=== PATIENT | male | born 1955 | race Caucasian/White ===

== ENCOUNTER 2022-11-26 08:13 | Day surgery (SDC) | payer MEDICARE, OTHER, SELFPAY ==
[2022-11-26] VITALS (10 sets, daily range): BP systolic 72–117; BP diastolic 57–79; PULSE 64–87; RESP 16; TEMP 36.8–37.1; O2SAT 97–100; BMI 28.3
--- NOTE | 2022-11-26 | LES_PTH ---
PATIENT: PATRIA FREGOSO [place] [facility] [id number] AGE/SX: 67/M ROOM: RE11/26/[address]: Dr. Dom Padilla MD : 1955 BED: DIS: 11/26/2022 SPEC #: [id number] RECD: 11/26/22 11:18 STATUS: BEBA NARDA #: [id number] BETHEL: 11/26/22 00:[address]: Dom Padilla DEPT: SURGICAL PATHOLOGY RECD BY: Joyce Avina ENTERED: 11/26/22 11:48 SP TYPE: Lesion OTHR DR: Dr. Aram Mccurdy MD Tissues: A - Skin of neck, NOS B - Skin of neck, NOS Procedures: Frozen Section (charge) [facility] Surgery Specimen Level IV HEADER OPERATION: Excision lesion posterior neck/upper midback with frozen section PRE-OP DIAGNOSIS: Lesion posterior neck and upper back TISSUE SUBMITTED: A - Lesion posterior neck and upper back, FS, B - Lesion posterior neck and upper back, stitch at 12 o'clock FROZEN SECTION DIAGNOSIS A. Skin lesion, posterior neck-upper back, biopsy: Invasive squamous cell carcinoma. AM:rg 11/26/2022 MICROSCOPIC DIAGNOSIS A - Lesion posterior neck and upper back, biopsy: Invasive basosquamous carcinoma. B - Lesion posterior neck and upper back, stitch at 12 o'clock, excisional biopsy: Invasive basosquamous carcinoma, completely excised. Mild actinic keratosis and solar elastosis. See comment. SJ: 11/29/2022 COMMENT Immunohistochemistry ([id number]) supports the above diagnosis. The tumor measures 1.5 cm in greatest width (measured microscopically) and up to 0.5 cm in depth. Perineural or lymph-vascular invasion is not identified. Case has been reviewed in consultation with Dr. Russo who concurs with the above diagnosis. IDC:AM MICROSCOPIC DESCRIPTION Slides are reviewed. GROSS DESCRIPTION A - Received fresh for frozen section consultation labeled with the patient's name is a specimen designated lesion posterior neck and upper back. The specimen consists of a piece of ardon-white skin measuring 2.7 x 1.7 x 0.2 cm. The specimen is inked, serially sectioned submitted entirely in two cassettes for frozen section diagnosis. B - Received in fixative is one container labeled with the patient's name and designated lesion posterior neck and upper back. The specimen consists of an irregular fragment of ardon excised skin measuring 5.0 x 3.6 cm and a depth of excision measuring 2.7 cm. A suture is present at the 12 o'clock position. The cutaneous surface displays a recent defect consistent with biopsy measuring 2.6 x 1.7 cm. The specimen is differentially inked as follows: 12 o'clock - black, 3 o'clock - red, 6 o'clock - blue, 9 o'clock - green and deep surface - yellow. The specimen is serially sectioned and submitted in its entirety in 12 cassettes. / AM:kevin 11/27/2022 TC:0 CPT:74558 x2, 23750, 48003
--- NOTE | 2022-11-26 | IMM_PTH ---
PATIENT: PATRIA FREGOSO [place] [facility] [place][id number] AGE/SX: 67/M ROOM: RE11/26/[address]: Dr. Dom Padilla MD : 1955 BED: DIS: 11/26/2022 SPEC #: [id number] RECD: 11/29/22 06:13 STATUS: BEBA REQ #: [id number] BETHEL: 11/26/22 00:[address]: Dom Padilla DEPT: IMMUNOHISTOCHEMISTRY RECD BY: Martin Groves ENTERED: 11/29/22 06:17 SP TYPE: IMMUNO OTHR DR: Dr. Aram Mccurdy MD Tissues: Skin of neck, NOS Procedures: CD10 (add) CEA (add) CK5-6 (add) RAJ (add) 34BE12 (add) P40 (add) BCL-2 (initial) PHYSICIAN & INSTITUTION [place] [id number] SPECIMEN INFORMATION: Tissue Source: Lesion posterior neck and upper back Clinical Info: Lesion posterior neck and upper back Specimen Number: [id number] CPT code: 39452, 71592 x 6 METHODOLOGY: Deparaffinized sections of prefer/formalin-fixed tissue or PAP/DQ stained slides are incubated with monoclonal/polyclonal antibodies/oligonucleotide probes. Localization is made via biotin free immunoperoxidase method. Appropriate controls are performed and reacted as expected. Results on target cell population are indicated in the following table: RESULTS: ANTIBODY / CLONE RESULT BCL-2 (bcl-2/100/D5) positive, weak CD10 (56C6) negative CEA (11-7/TF-3HB-1) negative RAJ (E29) negative P40 (BC28) positive CK5-6 (D5 & 1684) positive 34BE12 (34BE12) positive These tests were developed and their performance characteristics determined by [facility]. They may not have been cleared or approved by the U.S. Food and Drug Administration. The FDA has determined that such clearance or approval is not necessary. The above immunohistochemical/dualISH markers are ordered by Dr. Scott Russo and reviewed by the Pathologist. INTERPRETATION: Lesion posterior neck and upper back, excisional biopsy: Invasive basosquamous carcinoma LAMBERT:solitario 11/29/22
[2022-11-26] MEDS: Lactated Ringers 1,000 ML 15 ML IV (09:26)
[2022-11-26] MEDS: Clindamycin 900 MG/50 ML BAG 75 MG IV (10:35)
[2022-11-26] MEDS: Lidocaine 1% /Epi 1:100 (20ml) 20 ML Vial (11:10)
[2022-11-26] MEDS: Mupirocin Ointment 22gm Tube 1 APPLIC (11:59)
--- NOTE | 2022-11-26 13:37 | PCM.OPRPT ---
Problems Associated Problem List Diagnoses (1) Squamous cell carcinoma of skin of neck: (2) Squamous cell carcinoma of upper back excluding scapular region: (3) Family history of skin cancer: (4) Former smoker: Report of Operation Date of Procedure: 11/26/22 Pre-Operative Diagnosis: 1. 3 cm erythematous nodular lesion posterior neck with some extension onto upper mid back, clinically basal cell carcinoma. 2. Family history of skin cancer. 3. Former smoker. Post-Operative Diagnosis: 1. 3 cm invasive squamous cell carcinoma posterior neck with some extension onto upper mid back. 2. Family history of skin cancer. 3. Former smoker. Surgery/Procedure Performed:: Excision 3 cm invasive squamous cell carcinoma posterior neck with some extension onto upper mid back with rhomboid transposition skin flap reconstruction (50 cm2). Description of Surgical Findings:: 67 year old man presents for evaluation for TBSE. He has a concern about an erythematous nodular lesion on his posterior neck with some extension onto upper mid back that has been enlarging in size over the last several months. There is some discomfort when he bumps it. He denies trauma. He denies fever. He denies drainage. He denies infection. Clinically it looks like a basal cell carcinoma. Excision was recommended followed by skin graft or skin flap reconstruction. Patient was informed of the risks and complications of the procedure including alternatives to surgery. These were discussed with the patient personally. Patient voices understanding and wishes to proceed. Some of the risks and complications were included in a form from the [employer]. Potential risks and complications included but not inclusive of bleeding, infection, seroma, hematoma, bruising, swelling, prolonged need for drains, loss of sensation to skin, partial or complete loss of skin flap and/or skin graft, wound breakdown, need for wound care, poor scarring, poor aesthetic outcome, intra operative cardiac or neurologic events, DVT, PE, and reaction to anesthesia. Frozen section lesion posterior neck with some extension onto upper mid back - invasive squamous cell carcinoma. I used Nissa absorbable hemostat. Reference Number - [id number]. Lot Number - [id number]. Expiration - May 05, 2027. Surgeon: Dom Padilla MD agents' records clerk: Samson Smyth RNFA Type of Anesthesia: General Anesthesiologist: Shon Rios MD and Roly Ackerman MD Specimen's removed: 1. Lesion posterior neck with some extension onto upper mid back to Pathology for a frozen section. 2. Invasive squamous cell carcinoma posterior neck with some extension onto upper mid back to Pathology. Drains: None. Estimated Blood Loss (mL): 25. Description of Procedure: Patient was taken to OR in supine position and was placed under general anesthesia. He was placed in the prone position. The lesion posterior neck with some extension onto upper mid back was prepped and draped in the usual fashion. SCD's were placed for DVT prophylaxis. Perioperative antibiotics were given intravenously. Using xylocaine with epinephrine, the lesion was infiltrated. After waiting 5 minutes for the anesthetic to take effect, I excised the lesion in an intradermal fashion and sent it to Pathology as a frozen section for analysis to rule out carcinoma. Frozen section showed it was an invasive squamous cell carcinoma. Full thickness excision was then done with a margin of 1 cm in all directions thus fashioning a 5 cm excision. It was a rhomboid excision. A suture was marked at 12 oclock position for pathology orientation. The lesion was then sent to Pathology for analysis to rule out carcinoma at the margins. A rhomboid flap was designed inferior to the defect in the posterior neck/upper mid back. Incisions were made and the flap was elevated on a subcutaneous pedicle at the level of the underlying muscular fascia. The flap was easily transposed into the wound defect with minimal tension and minimal distortion. Hemostasis was obtained with electrocautery. The wound was sprayed with Nissa absorbable hemostat to minimize seroma formation. I closed the wound defect in a complex multiple layered fashion using 2-0 Vicryl figure of eight interrupted sutures for the underlying Mario's fascial layer. The deep dermis and subcutaneous tissue was approximated with 3-0 Monocryl interrupted sutures. The skin was approximated with 4-0 Prolene simple interrupted sutures. No vascular compromise was noted on the skin flap. No hematoma noted. The size of the wound defect and the size of the flap needed to close the defect was 50 cm2. The carcinoma and the flap reconstruction crossed two separate areas (posterior neck and upper mid back). About 25 cm2 involved the posterior neck and about 25 cm2 involved the upper mid back area. Antibiotic ointment was applied to the suture line followed by 4x4 gauze and Medipore compression dressing. Patient tolerated the procedure well and was sent to PACU in satisfactory condition. Patient will be sent home on antibiotics and pain medication. He will keep his head elevated during the initial postoperative period. He will be on a lifting restriction as well. Patient will followup in a week for a wound check and for discussion of the pathology report. The sutures will be removed in 2-3 weeks. Grafts/Implants Used: Nissa. Procedure Start Time: 11:10 Procedure Stop Time: 12:13 Complications None. Admit VTE Documentation VTE Present on Admission: No VTE Mechan Device Prophylaxis: SCD's VTE Pharm Prophylaxis ordered?: No Addendum Addendum: Surgery Charges CPT - 17535 ICD-10 - C44.42, C44.529, D49.2, Z80.8, Z87.891 37562 C44.529, C44.42, D49.2, Z80.8, Z87.891
--- NOTE | 2022-11-26 13:38 | DCINST_ITS ---
Discharge Instructions Diet Discharge Diet: No restrictions and - (encourage nutritional supplementation with protein to help the healing process.) Activity Discharge Activity: May Shower (in 2 days) and - (no heavy lifting. keep head elevated.) May shower in (days): 2 May resume sexual activity in: 4-6 weeks Weight Bearing Status: Weight bearing as tolerated Lifting Restrictions: 20 lbs. Keep extremity elevated above heart level: - (elevate head) Dressing / Incision Call your doctor if your incision/area has: Continuous Slow Oozing, Sudden Increased Bleeding, Increased Pain/ Swelling, Increased Redness, Foul Smelling Discharge and Swelling at the incision site Call your doctor if you observe: Fever of 101 or Higher, Coldness, Increased Pain, Shortness of breath, Chest pain, Calf discomfort and Uncontrolled pain Change Dressing in: 2 days (may remove operative dressing in 2 days when showering. Then reapply antibiotic ointment to suture line followed by gauze dressing.) Cleanse incision/area with: Soap & Water (may get incision wet in the shower in two days.) Follow Up Care Please Follow Up With: Dom Padilla MD When: one week on 12/03/22 at 1100am. call [phone] if any questions. Test Results: Test results from this visit will be discussed in further detail at your follow- up appointment, if applicable. Discharge Plan Admission Primary Reason for Your Visit: excision SCC posterior neck/upper mid back Attending Provider: Dom Padilla Primary Care Provider: Aram Mccurdy Discharge Orders/Prescriptions Prescriptions: New cefadroxil 500 mg capsule 500 mg PO BID Qty: 8 0RF L.acidoph,saliva-B.bif-S.therm [Acidophilus Probiotic Blend] 175 mg capsule 1 cap PO DAILY Qty: 14 0RF oxycodone-acetaminophen [Percocet] 5-325 mg tablet 1 tab PO Q6H PRN (Reason: pain (scale score 7-10)) 7 Days Qty: 28 0RF Rx Instructions: 28 tabs (twenty-eight) Held aspirin 81 MG tablet,chewable 81 mg PO DAILY@0800 Hold Instructions: Resume on 12/03/22. Referrals / Follow Up: Aram Mccurdy MD [Primary Care Provider] - Disposition Disposition (needs filled in before D/C Order can be placed): Home, Self Care
== END 2022-11-26 13:59 | disposition home or self-care (01) ==
LOC: SDC 08:17 → AC 08:33
PROVIDERS: PCP Family Medicine; Referring Provider Surgery; Visit Provider Surgery
PROC: (CPT 14041; principal; 2022-11-26 09:40)
DX: C44.42 Squamous cell carcinoma of skin of scalp and neck (principal); C44.529 Squamous cell carcinoma of skin of other part of trunk; D49.2 Neoplasm of unspecified behavior of bone, soft tissue, and skin; Z80.8 Family history of malignant neoplasm of other organs or systems; Z79.82 Long term (current) use of aspirin; Z87.891 Personal history of nicotine dependence
CPT/HCPCS: 14041; 14001; 00300; 88305; 88331; 88332; 88341; 88342; 93005; J7120; J2405

== ENCOUNTER → 2023-01-30 | Outpatient (CLI) | payer MEDICARE, OTHER, SELFPAY ==
--- NOTE | 2023-01-30 07:34 | ART_ITS ---
Reason For Study: PVD Procedure A bilateral lower extremity continuous wave Doppler with analog waveform analysis,segmental pressures,and ankle brachial indexes without exercise. Left Segmental Pressures Left brachial= 118mmHg. Left thigh = 154mmHg. Left calf = 109mmHg. Left posterior tibial artery = 101mmHg. Left dorsalis pedis artery = 87mmHg. Left digit = 66 mmHg. The left posterior tibial artery waveforms are biphasic. The left dorsalis pedis waveforms are biphasic. Right Segmental Pressures HX of BKA. Indices The left ankle brachial index by the posterior tibial artery is 0.64. The left ankle brachial index by the dorsalis pedis is 0.55. The left digital-brachial index is 0.42. VL/Lower Ext Art Exam w/o Exercis Interpretation Summary AB normal left posterior tibial and dorsalis pedis ankle-brachial indices of 0. 64 and 0.55 consistent with moderately severe arterial occlusive disease. Doppler waveforms are biphasic Digital PPG waveforms are flatline consistent with severe distal small vessel d isease Patient with a history of a right below-knee amputation Ordering Physician: William Foley Referring Physician: Aram Mccurdy Performed By: Audi Mitchell RVT
== END | disposition home or self-care (01) ==
LOC: CVS 07:34
PROVIDERS: PCP Family Medicine; Referring Provider Surgery; Visit Provider Surgery
DX: I73.9 Peripheral vascular disease, unspecified (principal)
CPT/HCPCS: 93923

== ENCOUNTER → 2023-03-18 | Outpatient (CLI) | payer MEDICARE, OTHER, SELFPAY ==
--- NOTE | 2023-03-18 11:59 | CT_ITS ---
STUDY: CTA OF THE ABDOMINAL AORTA AND BILATERAL LOWER EXTREMITIES REASON FOR EXAM: Male, 67 years old. PVD -- attn left leg-cool foot. RADIATION DOSAGE (If Supplied By Facility): CTDIvol = ( 8.54 ) mGy, DLP = ( 1351.11 ) mGycm TECHNIQUE: Axial CT angiography multi-detector data acquisition was obtained from the dome of the liver to the level of the ankles following intravenous administration of IV 100mL Isovue-370. Axial images and MIP images were reconstructed from the axial data set. Post-processing of the angiographic images was performed, with multiplanar reformation and 3D reconstruction. Individualized dose optimization techniques were used for this CT. TECHNICAL QUALITY: Good COMPARISON: None. Descriptors of Narrowing: None (0%) Mild (< 50%) Moderate (50-70%) Severe (70-90%) Subtotal/Total Occlusion (90-100%) Non-Evaluable (technically non-diagnostic FINDINGS: Coronary artery calcification. Diffuse fatty infiltration of the liver. There is a 1.7 cm x 1.4 cm hypodense nodule in the superior medial portion of the left kidney. Correlation with ultrasound is recommended. This is not a typical cyst. Prostatic enlargement with indentation at the bladder base. Bilateral inguinal hernias containing fat more prominent on the right side. Moderate size right inguinal hernia containing fat. Abdominal aorta: Atherosclerotic plaque formation. No evidence of aneurysm. Celiac and superior mesenteric arteries: Atherosclerotic plaque is seen at the origin of the superior mesenteric and celiac artery. Inferior mesenteric artery: No demonstrated narrowing. Right renal artery(arteries): No demonstrated narrowing. Left renal artery(arteries): No demonstrated narrowing. Right common iliac artery: Atherosclerotic calcific plaques. Right external iliac artery: Tight stenosis due to calcific plaques at the origin of the right external iliac artery. Right internal iliac artery: No demonstrated narrowing. Left common iliac artery: Atherosclerotic plaque formation. Left external iliac artery: No demonstrated narrowing. Left internal iliac artery: Atherosclerotic plaque formation. RIGHT LOWER EXTREMITY Right common femoral artery: Atherosclerotic plaque formation with tight stenoses. Right profundus femoris: No demonstrated narrowing. Right superficial femoral: Occlusion of the right superficial femoral artery. Patient status post below knee amputation. LEFT LOWER EXTREMITY Left common femoral artery: Diffuse atherosclerotic plaque formation. Left profundus femoris: No demonstrated narrowing. Left superficial femoral: Atherosclerotic plaque formation although the vessel is patent. Left popliteal artery: Stenosis in the midportion of the popliteal artery. Left tibioperoneal trunk: No demonstrated narrowing. Left anterior tibial artery: Patency of the left anterior tibial artery with focal areas of tight stenosis throughout its course. Left posterior tibial artery: No demonstrated narrowing. Left peroneal artery: No demonstrated narrowing. CT/CTA Abd w/Runoff W/WO Contrast IMPRESSION: Status post right below knee amputation. Stenoses throughout the course of the left superficial femoral artery and popliteal artery with the 2 vessel runoff. Electronically Signed: Se Brooks MD at 15:08 EST ,
[2023-03-18 12:25] LABS: CREATININE FINGERSTICK < 1.0 mg/dL (0.70-1.30); EGFR FINGERSTICK > 60.0000 mL/min (>60)
== END | disposition home or self-care (01) ==
LOC: CT 11:58
PROVIDERS: PCP Family Medicine; Referring Provider Surgery; Visit Provider Surgery
DX: I73.9 Peripheral vascular disease, unspecified (principal)
CPT/HCPCS: 75635; Q9967

== ENCOUNTER 2023-03-21 07:37 | Day surgery (SDC) | payer MEDICARE, OTHER, SELFPAY ==
--- NOTE | 2023-03-18 11:58 | EKG12_ITS ---
Test Reason : PREOP Blood Pressure : / mmHG Vent. 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
[2023-03-18 12:35] LABS: Hematocrit 48.8 % (40-54); Hemoglobin 16.2 g/dL (13.0-16.5); Mean Corp Hgb Conc 33.2 g/dL (32-36); Mean Corpuscular Hgb 30.8 pg (27.0-32.0); Mean Corpuscular Volume 92.8 fL (80-94); Mean Platelet Vol. 11.6 fl (6.2-12.0); Platelet Count 255 K/mm3 (150-450); RBC Distribution Width CV 13.6 % (11.6-14.6); RBC Distribution Width SD 46.5 fl (35.1-43.9); Red Blood Count 5.26 M/mm3 (4.6-6.2); White Blood Count 6.2 K/mm3 (4.4-11.0)
[2023-03-18 12:45] LABS: Anion Gap 6 (5-15); BUN 8 mg/dL (7-18); BUN/Creat Ratio 9.4 RATIO (10-20); Calcium,Total 9.3 mg/dL (8.5-10.1); Chloride 102 mmol/L (98-107); Creatinine, Serum 0.85 mg/dL (0.70-1.30); EST Glomerular Filtration Rate 96 mL/min (>60); Est Glom Filt Rate - Afr Amer 116 mL/min (>60); Glucose 110 mg/dL (74-106); Potassium 3.5 mmol/L (3.5-5.1); Sodium Level 137 mmol/L (136-145)
[2023-03-21] VITALS (12 sets, daily range): BP systolic 87–175; BP diastolic 53–89; PULSE 61–93; RESP 16–18; TEMP 36.5–37.3; O2SAT 94–100; BMI 27.3
[2023-03-21] MEDS: Lactated Ringers 1,000 ML 15 ML IV ×2 (08:13→15:00)
--- NOTE | 2023-03-21 08:48 | DCINST_ITS ---
Discharge Instructions Procedure General Surgery Diet Discharge Diet: Light diet - advance as tolerated (if you have questions about your diet instructions, please talk to you doctor.) Activity Discharge Activity: May Not Drive (for 3-5 days or while taking narcotic pain medicine.) May shower in (days): 1 Lifting Restrictions: 10 pounds Dressing / Incision Call your doctor if your incision/area has: Continuous Slow Oozing, Sudden Increased Bleeding, Increased Pain/ Swelling, Increased Redness and Foul Smelling Discharge Call your doctor if you observe: Fever of 101 or Higher Suture Line Care: Avoid Pulling/Pushing and Avoid Pinching/Bending Additional Dressing/Incision Instructions:: Change or remove dressing in 4 days. Leave steri-strips in place for 1 week. Follow Up Care Please Follow Up With: William Foley MD When: Call [phone] to make an appointment to be seen in about 10 days. Test Results: Test results from this visit will be discussed in further detail at your follow- up appointment, if applicable. Discharge Plan Admission Attending Provider: William Foley Primary Care Provider: Aram Mccurdy Discharge Orders/Prescriptions Prescriptions: No Action aspirin 81 MG tablet,chewable 81 mg PO DAILY@0800 Hold Instructions: Resume on 12/03/22. Referrals / Follow Up: Aram Mccurdy MD [Primary Care Provider] - Disposition Disposition (needs filled in before D/C Order can be placed): Home, Self Care
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
[2023-03-21] MEDS: Cefazolin 2 GM in 0.9% Normal Saline (100mL Bag) 100 ML IV (09:30)
[2023-03-21] MEDS: Bupivacaine 0.5% PF 10 ML VIAL (09:50)
--- NOTE | 2023-03-21 10:31 | PCM.OPRPT ---
Report of Operation Date of Procedure: 03/21/23 Pre-Operative Diagnosis: Symptomatic right inguinal hernia Post-Operative Diagnosis: Symptomatic large direct right inguinal hernia Surgery/Procedure Performed:: Laparoscopic right inguinal herniorrhaphy Extra-large Bard 3D max mesh lot number [id number], reference [id number], expiry date 10/04/2027 Description of Surgical Findings:: Timeout informed consent was obtained. 67-year-old gentleman was taken to the op room placed upon the table underwent general endotracheal intubation anesthesia. Ancef 2 g were given intravenously. 0.5% Marcaine was used as a local anesthetic. Throughout the procedure a total of 30 cc was used. Skin sites were Venessa size. A vertical infraumbilical incision was created holding sutures of 0 Vicryl placed vaginal and inserted saline drop test performed the abdomen was insufflated with CO2 to a pressure of 10 mmHg pressure. 10 mm trocar inserted. 10 mm laparoscope inserted. No evidence of gross inguinal defect on the left but likely because there is probably some fibrofatty tissue immediately occluding that small defect on CT. As discussed with the patient preoperatively I elected not to proceed with any exploration of the left today. There was an obvious large direct right inguinal hernia. 5 mm trocars were placed in the right left lower quadrants. A ilioinguinal nerve block was formed laparoscopically on the right. The peritoneum superior lateral to the internal ring was incised carried immediately the hernia sac was carefully dissected free the direct indirect and femoral area is completely dissected. Having achieved that I placed an extra-large Bard 3D max mesh it nicely sat in position and cover all 3 potential areas. It was secured laterally superiorly and medially with secure strap. Excellent coverage was achieved. The peritoneum was then approximated to itself using a combination of suture secure strap and Hem-o-hailee clips. Complete obliteration to the mesh was achieved. The abdomen was allowed to deflate of the CO2. The fascia at the umbilicus approximated up to 0 Nurolon [id number] suture. Skin edges approximated opted 4-0 Monocryl subdermal stitches. Steri-Strips Telfa OpSite dressings applied. Sponge and instrument and needle counts were reported to the surgeon to be correct. Specimens none. Drains none. Blood loss minimal. The patient was taken to the recovery room in satisfied condition without apparent complication William Foley M.D., F.A.C.S. Surgeon: William Foley Type of Anesthesia: General and Local Anesthesiologist: Shon Rios
[2023-03-21] MEDS: Tamsulosin HCl 0.4 MG Capsule PO (15:57)
--- NOTE | 2023-03-21 16:43 | SUR.PHASEII ---
1183 PATIENT ATTEMPTED TO VOID BUT UNABLE . PATIENT ASSISTED WITH AMBULATING AROUND THE UNIT . WATER/ICE CREAM GIVEN. CALL LO IN REACH .
== END 2023-03-21 18:12 | disposition home or self-care (01) ==
LOC: SDC 07:38 → AC 07:38
PROVIDERS: PCP Family Medicine; Referring Provider Surgery; Visit Provider Surgery
PROC: (CPT 49650; principal; 2023-03-21 09:25)
DX: K40.90 Unilateral inguinal hernia, without obstruction or gangrene, not specified as recurrent (principal); I73.9 Peripheral vascular disease, unspecified; Z87.891 Personal history of nicotine dependence; Z79.82 Long term (current) use of aspirin
CPT/HCPCS: 49650; 00840; 36415; 80048; 85027; 93005; J7120; C1781; J2405

== ENCOUNTER → 2023-04-02 | Outpatient (CLI) | payer MEDICARE, OTHER, SELFPAY ==
--- NOTE | 2023-04-02 12:44 | US_ITS ---
INDICATION: ABNORMAL CT EXAMINATION: Ultrasound US Kidney(s) complete (eg, kidneys and bladder) TECHNIQUE: Cisneros scale and color doppler images were obtained of the kidneys. COMPARISON: CT dated March 18, 2023 FINDINGS: RIGHT KIDNEY: The right kidney measures 11.3 cm in length. There is no hydronephrosis. No shadowing calculus, focal lesion or perinephric collection is demonstrated. LEFT KIDNEY: The left kidney measures 10.1 cm in length. There is no hydronephrosis. There is a 1.7 x 2.1 x 1.2 cm hypoechoic partially solid-appearing round focus arising from the upper/mid and medial left kidney with internal vascularity. URINARY BLADDER: No acute abnormality. US/Kidney and Bladder IMPRESSION: 1.7 x 2.1 x 1.2 cm complex partially solid appearing lesion arising from the left kidney concerning for a neoplastic process, consider MRI with contrast for further characterization. Electronically Signed: Rizwana Park MD at 9:02 EST ,
== END | disposition home or self-care (01) ==
LOC: US 12:43
PROVIDERS: PCP Family Medicine; Referring Provider Surgery; Visit Provider Surgery
DX: R93.5 Abnormal findings on diagnostic imaging of other abdominal regions, including retroperitoneum (principal)
CPT/HCPCS: 76770

== ENCOUNTER 2023-05-22 09:31 | Day surgery (SDC) | payer MEDICARE, OTHER, SELFPAY ==
[2023-05-22] VITALS (14 sets, daily range): BP systolic 111–153; BP diastolic 62–93; PULSE 70–94; RESP 14–16; TEMP 36.4–37; O2SAT 95–100; BMI 26.7
--- OUTSIDE RECORDS SUMMARY | 2023-05-22 09:56 | XMS RPT_ITS | CCD ---
Author Name Unknown Address [address] [place] [address] Organization [facility] Care Team Providers Care Engagement Mgr Name Role Phone Monique Young MD Primary Care Provider MONIQUE YOUNG Attending Unavailable MONIQUE YOUNG Primary Care Unavailable BEVERLY GRIFFIN Attending Unavailable MONIQUE YOUNG Primary Care Unavailable Medications Current Medications Medication Drug Class(es) Dates Sig (Normalized) Sig (Original) aspirin 81 mg delayed release oral tablet (3 sources) Platelet Aggregation Inhibitor, Nonsteroidal Anti-inflammatory Drug take 1 tablet by mouth once daily aspirin 81 MG EC tablet Take 81 mg by mouth daily. 0 Active Problems Active Problems Problem Classification Problem Date Documented Da te Episodic/Chronic Abdominal hernia (3 sources) Inguinal hernia; Translations: [Unilateral inguinal hernia, without obstruction or gangrene, not specified as recurrent] Onset: 01-21-2023 01-21-2023 Episodic Coronary atherosclerosis and other heart disease (7 sources) Coronary atherosclerosis; Translations: [Atherosclerotic heart disease of [place] coronary artery without angina pectoris] Onset: 01-20-2015 Chronic Diabetes mellitus without complication (4 sources) Hyperglycemia; Translations: [Impaired fasting glucose] Onset: 01-21-2023 01-21-2023 Episodic Disorders of lipid metabolism (7 sources) Hyperlipidemia; Translations: [Hyperlipidemia, unspecified] Onset: 01-20-2015 Chronic Essential hypertension (7 sources) Essential hypertension; Translations: [Essential (primary) hypertension] Onset: 01-20-2015 Chronic Open wounds of extremities (6 sources) Amputated right lower limb below knee; Translations: [Complete traumatic amputation at level between knee and ankle, right lower leg, sequela] Onset: 07-04-2022 Resolved: 01-21-2023 Chronic Other bone disease and musculoskeletal deformities (3 sources) History of amputation of right leg through tibia and fibula; Translations: [Acquired absence of right leg below knee] Onset: 01-21-2023 01-21-2023 Chronic Peripheral and visceral atherosclerosis (10 sources) Peripheral vascular disease; Translations: [Peripheral vascular disease, unspecified] Onset: 01-20-2015 Resolved: 01-21-2023 Chronic Past or Other Problems Problem Classification Problem Date Documented Da te Episodic/Chronic Neoplasms of unspecified nature or uncertain behavior (2 sources) Neoplasm of skin of neck; Translations: [Neoplasm of unspecified behavior of bone, soft tissue, and skin] Onset: 08-31-2022 Resolved: 01-21-2023 01-21-2023 Episodic Other non-epithelial cancer of skin (6 sources) Basal cell carcinoma of truncal skin; Translations: [Basal cell carcinoma of skin of other part of trunk] Onset: 07-04-2022 Episodic Other screening for suspected conditions (not mental disorders or infectious disease) (3 sources) Patient encounter status; Translations: [Encounter for screening for malignant neoplasm of prostate] Onset: 07-04-2022 Episodic Results Test Name Value Interpretation Reference Range Facil ity Vital Signs Date Time Vital Sign Value Performing Clinician Faci lity 01-21-2023 10:06-0400 Body height 180.3 cm Beverly Griffin BLOOD BANK CALENDAR CONTROL CLERK [place] Work Phone: [email or web address] 01-21-2023 10:06-0400 Body mass index (BMI) [Ratio] 28.19 kg/m2 Beverly Eloy BLOOD BANK CALENDAR CONTROL CLERK [place] Work Phone: [email or web address] 01-21-2023 10:06-0400 Body temperature 98.71 [degF] Beverly Griffin BLOOD BANK CALENDAR CONTROL CLERK [place] Work Phone: [email or web address] 01-21-2023 10:06-0400 Body weight 91.67 kg Beverly Eloy BLOOD BANK CALENDAR CONTROL CLERK [place] Work Phone: [email or web address] 01-21-2023 10:06-0400 Diastolic blood pressure 83 mm[Hg] Beverly Griffin BLOOD BANK CALENDAR CONTROL CLERK [place] Work Phone: [email or web address] 01-21-2023 10:06-0400 Heart rate 78 /min Beverly Griffin BLOOD BANK CALENDAR CONTROL CLERK [place] Work Phone: [email or web address] 01-21-2023 10:06-0400 Respiratory rate 20 /min Beverly Griffin BLOOD BANK CALENDAR CONTROL CLERK - DISEASE AND INSECT CONTROL BOSS Work Phone: [facility] [employer] 01-21-2023 10:06-0400 SaO2% (BldA) [Mass fraction] 98 % Beverly Griffin BLOOD BANK CALENDAR CONTROL CLERK - DISEASE AND INSECT CONTROL BOSS Work Phone: [facility] [employer] 01-21-2023 10:06-0400 Systolic blood pressure 121 mm[Hg] Beverly Eloy BLOOD BANK CALENDAR CONTROL CLERK - DISEASE AND INSECT CONTROL BOSS Work Phone: [facility] [employer] 07-04-2022 08:25-0400 Body height 180.3 cm Monique Young MD Work Phone: [facility] [employer] 07-04-2022 08:25-0400 Body mass index (BMI) [Ratio] 27.42 kg/m2 Monique Young MD Work Phone: [facility] [employer] 07-04-2022 08:25-0400 Body weight 89.18 kg Monique Young MD Work Phone: [facility] [employer] 07-04-2022 08:25-0400 Diastolic blood pressure 86 mm[Hg] Monique Young MD Work Phone: [facility] [employer] 07-04-2022 08:25-0400 Heart rate 82 /min Monique Young MD Work Phone: [facility] [employer] 07-04-2022 08:25-0400 Systolic blood pressure 129 mm[Hg] Monique Young MD Work Phone: [facility] Encounters Encounter Date Encounter Type Care Provider Facility Start: 01-22-2023 Telephone encounter Monique Shabazz MD Work Phone: [facility] Family Medicine Procedures Date Procedure Procedure Detail Performing Clinician Start: 01-21-2023 Adult depression screening assessment Beverly Eloy BLOOD BANK CALENDAR CONTROL CLERK - DISEASE AND INSECT CONTROL BOSS Work Phone: Start: 07-04-2022 Lipid 1996 panel - S asad or Plasma Beverly Eloy BLOOD BANK CALENDAR CONTROL CLERK - DISEASE AND INSECT CONTROL BOSS Work Phone: Plan of Treatment Date Care Activity Detail Author Start: 07-05-2027 Lipid panel Lipid Panel [facility] Start: 08-17-2026 DTaP/Tdap/Td Vaccine s (3 - Td or Tdap) DTaP/Tdap/Td Vaccines (3 - Td or Tdap) [facility] Start: 01-21-2026 Diabetes mellitus screening Diabetes Screening [facility] Start: 02-21-2024 Medicare Annual Wellness (AWV) Medicare Annual Wellness (AWV) [facility] Start: 01-24-2024 End: 01-24-2024 Patient encounter procedure 01/24/2024 10:00 AM EDT Office Visit [facility] [address] [place] [address] Beverly Griffin, BLOOD BANK CALENDAR CONTROL CLERK - DISEASE AND INSECT CONTROL BOSS [address] [place], [place] [id number] [facility] Start: 01-22-2024 Depression Screening Depression Scre ening [facility] Start: 01-22-2024 Screening for malign ant neoplasm of colon Colorectal Cancer Screening [facility] Immunizations Immunization Date Immunization Notes Care Provider Fa cility 08-17-2016 tetanus toxoid, redu chavo diphtheria toxoid, and acellular pertussis vaccine, adsorbed Monique Young MD Work Phone: [facility] 01-10-1984 diphtheria and tetan us toxoids, adsorbed for pediatric use Monique Young MD Work Phone: [facility] Payers Date Payer Category Payer Medicare MEDICARE MEDICAR E PART A AND B [id number] 2022-Present [address] [place] [address] Medicare [id number] 2022 Medicare [id number] 2022 Private Health Insurance [employer] [id number] 2022-Present [address] [address] [place] [address] Supplement [id number] 2022 Private Health Insurance CLI [id number] Social History Date Type Detail Facility Start: 07-04-2022 Tobacco smoking status NHIS Ex-smoke r [facility] End: 01-20-2010 History of tobacco use Current smoker [facility] End: 01-20-2010 History of tobacco use Cigarette Smoker [facility] Start: 07-04-2022 Tobacco use and exposure Smokeless t obacco non-user [facility] Start: 07-04-2022 End: 01-21-2023 Alcohol intake Current non-drinker of alcohol (finding) [facility] Start: 07-03-2022 End: 07-04-2022 Alcohol intake [facility] Start: 07-03-2022 History SDOH Financial 5 [facility] Start: 07-03-2022 History SDOH Food Worry 1 [facility] Start: 07-03-2022 History SDOH Transport Med 2 [facility] Start: 1955 Sex Assigned At Not on file [facility] Start: 06-23-2022 End: 07-03-2022 Exposure to SARS-CoV-2 (event) Not sure [facility] Start: 07-03-2022 End: 01-21-2023 Tobacco use panel [facility] How hard is it for y ou to pay for the very basics like food, housing, medical care, and heating Not hard at all [facility] (I/We) worried [facility] (my/our) food would run out before (I/we) got money to buy more. Never true [facility] Clinical Notes 07-04-2022 to 01-23-2023 Telephone Encounter - JUAN Riggs CNP - 01/23/2023 2:44 PM EDTTelephone Encounter - JUAN Riggs CNP - 01/23/2023 2:44 PM JUAN Iqbal CNP - 01/21/2023 10:00 AM EDT Note Date & Type Note Facility 01-23-2023 Telephone encount er Note Noted. Thank you. [facility] 01-23-2023 Miscellaneous Notes Formattin g of this note might be different from the original. Noted. Thank you. Spoke to the nurse for Dr. Foley, she said that testing is too old and Dr. Foley will want new testing done so they will order it and get it set up. Can we pass this information along to Brie and see if Dr. Foley has access to any of the previous records? If not, we can attempt to request the records. He states this was done 10-11 years ago at [facility], he states he had quite a bit of testing. What specifically should I be requesting? Pt states Dr. Foley is who he saw previously when he was at [facility] before he went to [place] so he thinks he should already have all of his records. Images from the original note were not included. JUAN Riggs CNP [facility] Sound Person 1 hour ago (7:12 AM) HL Can we ask Jonah where he had his previous testing done at so we can request records? Thank you. Left a message to return call. Also, relay lab results in separate TE please. Can we ask Jonah where he had his previous testing done at so we can request records? Thank you. I don't see any testing in chart, can you confirm before I call Brie back, thanks! Name of caller: Brie / [facility] Contact phone number: [phone] Provider: Dr. Young Practice: [facility] Chief Complaint/Reason for Call: They need records of vascular testing with the referral they received today. There were 5 pages missing and they didn't know if this was including in the pages or if patient still is needing to get this testing done. Please advise. documented in this encounter [facility] 01-23-2023 Telephone encount er Note Spoke to the nurse for Dr. Foley, she said that testing is too old and Dr. Foley will want new testing done so they will order it and get it set up. [facility] 01-23-2023 Telephone encount er Note Can we pass this information along to Brie and see if Dr. Foley has access to any of the previous records? If not, we can attempt to request the records. [facility] 01-23-2023 Telephone encount er Note He states this was done 10-11 years ago [address] [facility], he states he had quite a bit of testing. What specifically should I be requesting? Pt states Dr. Foley is who he saw previously when he was at [facility] before he went to [place] so he thinks he should already have all of his records. [facility] 01-23-2023 Telephone encount er Note Images from the original note were not included. JUAN Riggs CNP [facility] Clinical Sound Person 1 hour ago (7:12 AM) HL Can we ask Jonah where he had his previous testing done at so we can request records? Thank you. Left a message to return call. Also, relay lab results in separate TE please. [facility] [employer] 01-23-2023 Telephone encount er Note Can we ask Jonah where he had his previous testing done at so we can request records? Thank you. [facility] 01-22-2023 Telephone encount er Note I don't see any testing in chart, can you confirm before I call Brie back, thanks! [facility] [employer] 01-22-2023 Telephone encount er Note Name of caller: [facility] / [facility] Contact phone number: [phone] Provider: Dr. Young Practice: [facility] Chief Complaint/Reason for Call: They need records of vascular testing with the referral they received today. There were 5 pages missing and they didn't know if this was including in the pages or if patient still is needing to get this testing done. Please advise. [facility] [employer] 01-21-2023 History of Presen t illness Narrative Images from the original note were not included. [facility] [address] [facility] [id number] Visit type: Established Patient Reason for Visit: Medicare Annual Wellness Visit Initial and Health Maintenance (/Colon-refused/Skin check-scheduled in 3 months/MMR-refused/S7y-[id number]/F adriel-refused) Assessment and Plan 1. Welcome to Medicare preventive visit - Encouraged a healthy diet low in cholesterol and saturated fats. - Encouraged regular exercise. 2. Essential hypertension - Stable with lifestyle modifications. 3. Coronary artery disease involving [place] coronary artery of [place] heart without angina pectoris - Declines statin therapy. Denies current concerns or worries. 4. Peripheral vascular obstructive disease (HCC) - External referral to General Surgery - Symptoms stable. Will have him follow up with specialist. 5. 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 Continue use of prosthesis. 6. Hyperlipidemia LDL goal <100 - Stable. Declines statin. 7. Elevated fasting glucose - Hemoglobin A1c - Basic metabolic panel - Will notify of blood work results. 8. Unilateral inguinal hernia without obstruction or gangrene, recurrence not specified - External referral to General Surgery Follow up in about 1 year (around 01/22/2024) for AWV and fasting blood work. Timmy HPI- Jonah presents today for his Welcome to Medicare physical and fasting blood work. Had his PSA level checked on 07/04/22 this year with normal findings. Do not need to repeat today. Also had his cholesterol levels checked in June and he does not want this repeated today. His fasting blood sugar was 115 and we will follow up on this today. Had an EKG prior to surgery he had in October for skin cancer surgery so he does not want this repeated today. Hypertension: Not currently on medication for his blood pressure. It is well controlled today at 121/83. CAD/PVD/Hyperlipidemia: Would like a referral to a vascular specialist. Would like to see Dr. William Foley who he has seen in the past. Not currently following up with cardiology and declines a referral at this time. Also has a hernia in his right groin that has been present for 10 years. Wears a hernia belt. Would like ton discussed with Dr. Foley as well. States it goes away when he lays flat. Has had BKA on his right due to right leg due to ischemia in the past. Declines to take medication for his cholesterol. Health Maintenance: Declines a colonoscopy for colon cancer screening and all other forms of screening at this time. Saw a legal intern for skin cancer screening in October. States he was vaccinated for MMR as a child. Declines a flu vaccination. Declines to be vaccinated for pneumonia. Declines to be vaccinated for shingles. Declines screening for Hep C. Declines to be vaccinated for COVID-19. Tdap is current: 08/17/16. I have reviewed and reconciled the medication list with the patient today. Current Outpatient Medications Medication Sig Dispense Refill aspirin 81 MG EC tablet Take 81 mg by mouth daily. No current facility-administered medications for this visit. There are no discontinued medications. List of current healthcare providers: Patient Care Team: Monique Young MD as PCP - General (Family Medicine) The following health maintenance schedule was reviewed with the patient and provided in printed form in the after visit summary: Health Maintenance Topic Date Due Medicare Initial Physical (IPPE) Never done Diabetes Screening Never done Pneumococcal Vaccine: 65+ Years (1 - PCV) 07/04/2023 (Originally 1961) Zoster Vaccines (1 of 2) 07/04/2023 (Originally 2007) Hepatitis C Screening 07/04/2023 (Originally 1975) COVID-19 Vaccine (1) 07/04/2023 (Originally 1955) Influenza Vaccine (1) 10/06/2023 (Originally 12/07/2022) Colorectal Cancer Screening 01/22/2024 (Originally 1955) Derm Melanoma Skin Check 04/08/2023 Depression Screening 01/22/2024 Medicare Annual Wellness (AWV) 02/21/2024 DTaP/Tdap/Td Vaccines (3 - Td or Tdap) 08/17/2026 Lipid Panel 07/05/2027 HIB Vaccines Aged Out Hepatitis B Vaccines Aged Out IPV Vaccines Aged Out Hepatitis A Vaccines Aged Out Meningococcal Vaccine Aged Out Rotavirus Vaccines Aged Out HPV Vaccines Aged Out MMR Vaccines Discontinued Orders Placed This Encounter Procedures Hemoglobin A1c Standing Status: Future Number of Occurrences: 1 Standing Expiration Date: 01/22/2024 Basic metabolic panel Standing Status: Future Number of Occurrences: 1 Standing Expiration Date: 01/22/2024 External referral to General Surgery Standing Status: Future Standing Expiration Date: 07/23/2023 Referral Priority: Routine Referral Type: Consultation Referral Reason: Specialty Services Required Referred to Provider: William Gannon Specialty: General Surgery Number of Visits Requested: 1 Health Risk Assessment: General In general, how would you say your health is?: Good In the past 7 days, have you experienced any of the following: New or Increased Pain, New or Increased Fatigue, Loneliness, Social Isolation, Stress or Anger?: No Do you get the social and emotional suppport you need?: Yes Interventions: N/A Health Habits / Nutrition On average, how many days per week do you engage in moderate to strenous exercise (like a brisk walk)?: 3 days On average, how man minutes do you engage in exercise at this level?: 30 min Have you lost any weight without trying in the past 3 months? : No Have you seen the dentist within the past year?: (!) No Interventions: Dental exam overdue: Patient encouraged to make appointment with his / her dentist Hearing / Vision Do you or your family notice any trouble with your hearing that hasn't been managed with hearing aids?: No Do you have difficulty driving, watching TV, or doing any of your daily activities because of your eyesight?: No Have you had an eye exam within the past year?: Yes Vision Screening Right eye Left eye Both eyes Without correction With correction 20/40 20/25 20/20 Interventions: N/A Safety Do you have a working smoke detector?: Yes Do you have any tripping hazards - loose or unsecured carpets or rugs?: No Do you have any tripping hazards - clutter in doorways, halls, or stairs?: No Do you have either shower bars, grab bars, non-slip mats or non-slip surfaces in your shower or bathtub? : Yes Do all your stairways have a railing or banister? : Yes Do you fasten your seatbelt when you are in a car?: Yes Interventions: N/A ADL In the past 7 days, did you need help from others to perform any of the following everyday activities: Eating, dressing, grooming,bathing, toileting, or walking / balance? : No In the past 7 days, did you need help from others to take care of any of the following: laundry, housekeeping, banking / finances,shopping, telephone use, food preparation, transportation, or taking medications? : No Interventions: N/A Living Will Do you have a living will?: Yes Interventions: N/A Cognitive: Cognitive Screening: Mini-Cog Clock Drawing Test (CDT): 2 Words Recalled: 2 Total Score: 4 Total Score Interpretation: Normal Mini-Cog Hypertension: Yes Interventions: N/A Fall Risk: 01/21/2023 1011 Fall Risk One or more falls in the last year: No Advised to use a cane or walker to get around safely: No Feels unsteady when walking: No Steadies self on furniture while walking at home: No Worried about falling: No Interventions: N/A Depression Screening: Over the past 2 weeks, how often have you been bothered by any of the following problems? Little interest or pleasure in doing things: Not at all Feeling down, depressed, or hopeless: Not at all Patient Health Questionnaire-2 Score: 0 Interventions: N/A Tobacco Use: Social History Tobacco Use Smoking Status Former Types: Cigarettes Quit date: 01/20/2010 Years since quittin.0 Smokeless Tobacco Never Interventions: N/A Alcohol Use: Interventions: N/A Drug Use: Interventions: N/A Review of Systems Constitutional: Negative for chills and fever. HENT: Negative for hearing loss and trouble swallowing. Eyes: Negative for pain and visual disturbance. Respiratory: Negative for cough, chest tightness, shortness of breath and wheezing. Cardiovascular: Negative for chest pain, palpitations and leg swelling. Gastrointestinal: Negative for abdominal distention, abdominal pain, blood in stool, constipation and diarrhea. Endocrine: Negative for polydipsia, polyphagia and polyuria. Genitourinary: Negative for difficulty urinating, dysuria and hematuria. Musculoskeletal: Negative for arthralgias and myalgias. Skin: Negative for color change, pallor, rash and wound. Neurological: Negative for dizziness, syncope, weakness and headaches. Hematological: Does not bruise/bleed easily. Psychiatric/Behavioral: Negative for dysphoric mood. The patient is not nervous/anxious. Immunization History Administered Date(s) Administered DT (pediatric) 01/10/1984 Tdap 08/17/2016 No Known Allergies Outpatient Medications Prior to Visit Medication Sig Dispense Refill aspirin 81 MG EC tablet Take 81 mg by mouth daily. No facility-administered medications prior to visit. Past Medical History: Diagnosis Date Amputation, below knee, unilateral, traumatic (HCC) CAD (coronary artery disease) Hyperlipidemia Hypertension Peripheral vascular disease with claudication (HCC) Social History Socioeconomic History Marital status: Tobacco Use Smoking status: Former Types: Cigarettes Quit date: 01/20/2010 Years since quittin.0 Smokeless tobacco: Never Substance and Sexual Activity Alcohol use: No Alcohol/week: 0.0 standard drinks of alcohol Drug use: No Social Determinants of Health Financial Resource Strain: Low Risk (07/03/2022) Overall Financial Resource Strain (CARDIA) Difficulty of Paying Living Expenses: Not hard at all Food Insecurity: No Food Insecurity (07/03/2022) Hunger Vital Sign Worried About Running Out of Food in the Last Year: Never true Ran Out of Food in the Last Year: Never true Transportation Needs: No Transportation Needs (07/03/2022) PRAPARE - Transportation Lack of Transportation (Medical): No Lack of Transportation (Non-Medical): No Past Surgical History: Procedure Laterality Date CORONARY ANGIOPLASTY LEG AMPUTATION THROUGH LOWER TIBIA AND FIBULA Right TOOTH EXTRACTION (HISTORICAL) July 2015 Past Surgical History: Procedure Laterality Date CORONARY ANGIOPLASTY LEG AMPUTATION THROUGH LOWER TIBIA AND FIBULA Right TOOTH EXTRACTION (HISTORICAL) July 2015 Family History Problem Relation Name Age of Onset High Blood Pressure Mother No Known Problems Father Objective BP 121/83 Pulse 78 Temp 37.1 C (98.7 F) (Infrared) Resp 20 Ht 5' 11 (1.803 m) Wt 202 lb 1.6 oz (91.7 kg) SpO2 98% BMI 28.19 kg/m Physical Exam Constitutional: General: Not in acute distress. Appearance: Not ill-appearing or diaphoretic. HENT: Head: Normocephalic and atraumatic. Right Ear: Tympanic membrane, ear canal and external ear normal. Left Ear: Tympanic membrane, ear canal and external ear normal. Nose: Nose normal. No congestion or rhinorrhea. Mouth/Throat: Mouth: Mucous membranes are moist. Pharynx: Oropharynx is clear. No oropharyngeal exudate or posterior oropharyngeal erythema. Eyes: General: No scleral icterus. Extraocular Movements: Extraocular movements intact. Pupils: Pupils are equal, round, and reactive to light. Neck: Thyroid: No thyroid mass or thyromegaly. Vascular: No carotid bruit. Cardiovascular: Rate and Rhythm: Normal rate and regular rhythm. Pulses: Normal pulses. Heart sounds: Normal heart sounds. No murmur heard. No friction rub. Pulmonary: Effort: Pulmonary effort is normal. Breath sounds: Normal breath sounds. No wheezing, rhonchi or rales. Abdominal: General: Bowel sounds are normal. Palpations: Abdomen is soft. There is no hepatomegaly, splenomegaly or mass. Tenderness: There is no abdominal tenderness. Right inguinal hernia noted. Reducible. Musculoskeletal: General: No deformity. Normal range of motion. Cervical back: Normal range of motion and neck supple. Right lower leg: Right BKA noted. Left lower leg: No edema. Diminished pulse LLE. Lymphadenopathy: Cervical: No cervical adenopathy. Skin: General: Skin is warm and dry. Coloration: Skin is not jaundiced or pale. Findings: No erythema. Neurological: Mental Status: Alert and oriented to person, place, and time. Motor: No weakness. Gait: Gait normal. Psychiatric: Mood and Affect: Mood normal. Behavior: Behavior normal. Thought Content: Thought content normal. Judgment: Judgment normal. Data Reviewed Labs: Imaging/Testing: JUAN Riggs CNP 01/21/2023 11:35 AM Patient was identified by name and Date of . Health Main: Colon-refused Skin check-scheduled in 3 months MMR-refused [id number] Flu-refused Eye exam completed. documented in this encounter [facility] 07-04-2022 Note Referral to plastic surgery for further evaluation and removal [facility] 07-04-2022 Evaluation + Plan note Associated Problem(s): Hyperlipidemia LDL goal <100 Control unknown, he is off all of his medications we will get lab work today. [facility] 07-04-2022 Miscellaneous Notes Associate d Problem(s): Hyperlipidemia LDL goal <100 Control unknown, he is off all of his medications we will get lab work today. Associated Problem(s): Basal cell carcinoma of skin of trunk, except scrotum Referral to plastic surgery for further evaluation and removal Associated Problem(s): Unilateral complete BKA, right, sequela (HCC) Stable, he does need a new prosthesis and his prosthesis company will send us the prescriptions to fill out. Associated Problem(s): Peripheral vascular obstructive disease (HCC) Stable, he is on an aspirin a day but his off of his pletal Associated Problem(s): Coronary artery disease involving [place] coronary artery of [place] heart without angina pectoris Stable, has had no angina recently, is currently on no medications Associated Problem(s): Essential hypertension Controlled, he is currently off all of his medications, low-sodium diet documented in this encounter [facility] 07-04-2022 Evaluation + Plan note Associated Problem(s): Basal cell carcinoma of skin of trunk, except scrotum Referral to plastic surgery for further evaluation and removal [facility] 07-04-2022 Evaluation + Plan note Associated Problem(s): Unilateral complete BKA, right, sequela (HCC) Stable, he does need a new prosthesis and his prosthesis company will send us the prescriptions to fill out. [facility] 07-04-2022 Evaluation + Plan note Associated Problem(s): Peripheral vascular obstructive disease (HCC) Stable, he is on an aspirin a day but his off of his pletal [facility] 07-04-2022 Evaluation + Plan note Associated Problem(s): Coronary artery disease involving [place] coronary artery of [place] heart without angina pectoris Stable, has had no angina recently, is currently on no medications [facility] 07-04-2022 Evaluation + Plan note Associated Problem(s): Essential hypertension Controlled, he is currently off all of his medications, low-sodium diet [facility] 07-04-2022 History of Presen t illness Narrative Patient verified by last name and date of . Patient wants a sandfill operator in the room during during the visit. no Cotton Jammer na Images from the original note were not included. 07/04/2022 Jonah Rivero (: 1955) is a 67 y.o. male , Established patient, here for evaluation of the following chief complaint(s): New Patient (To reestablish), Forms/questionnaires (Need new prosthetic and needed to be seen), and Health Maintenance (Pt refused- colonoscopy referral, covid vaccine, pcv 20 vaccine, shingles vaccine and flu vaccine) ASSESSMENT/PLAN: 1. Essential hypertension Assessment & Plan: Controlled, he is currently off all of his medications, low-sodium diet Orders: - Comprehensive metabolic panel 2. Coronary artery disease involving [place] coronary artery of [place] heart without angina pectoris Assessment & Plan: Stable, has had no angina recently, is currently on no medications 3. Peripheral vascular obstructive disease (HCC) Assessment & Plan: Stable, he is on an aspirin a day but his off of his pletal 4. Hyperlipidemia LDL goal <100 Assessment & Plan: Control unknown, he is off all of his medications we will get lab work today. Orders: - Lipid panel 5. Screening for prostate cancer - PSA Screening 6. Basal cell carcinoma of skin of trunk, except scrotum Assessment & Plan: Referral to plastic surgery for further evaluation and removal Orders: - External referral to Plastic Surgery 7. Unilateral complete BKA, right, sequela (HCC) Assessment & Plan: Stable, he does need a new prosthesis and his prosthesis company will send us the prescriptions to fill out. Follow up in about 6 months (around 01/04/2023). SUBJECTIVE/OBJECTIVE: DESHAWN Ferris comes in today to reestablish, he has not been seen for 5 years he has a history of hypertension, hyperlipidemia and peripheral vascular disease and he has a right BKA due to his peripheral vascular disease. He says he has no complaints today he does have a lesion on his back at the base of his neck that he would like looked he says is been there for years and kind of comes and goes but never completely disappears. He needs fasting lab work and he also will need a prescription for a new prosthesis and supplies. His prosthesis company will send us a printed prescription that we can fill out and send. Review of Systems Constitutional: Negative for activity change, appetite change, chills, fever and unexpected weight change. HENT: Negative for ear pain and sore throat. Respiratory: Negative for shortness of breath. Cardiovascular: Negative for chest pain and palpitations. Gastrointestinal: Negative for abdominal pain, blood in stool, constipation and diarrhea. Genitourinary: Negative for dysuria, frequency, hematuria and urgency. Musculoskeletal: Negative for arthralgias and back pain. Skin: Negative. Neurological: Negative for weakness and numbness. Psychiatric/Behavioral: Negative for dysphoric mood. The patient is not nervous/anxious. Vitals: 07/04/22 0825 BP: 129/86 Pulse: 82 Weight: 196 lb 9.6 oz (89.2 kg) Height: 5' 11 (1.803 m) Physical Exam Vitals and nursing note reviewed. Constitutional: General: He is not in acute distress. Appearance: Normal appearance. HENT: Right Ear: Tympanic membrane, ear canal and external ear normal. Left Ear: Tympanic membrane, ear canal and external ear normal. Mouth/Throat: Mouth: Mucous membranes are moist. Pharynx: Oropharynx is clear. Eyes: Extraocular Movements: Extraocular movements intact. Pupils: Pupils are equal, round, and reactive to light. Neck: Vascular: No carotid bruit. Cardiovascular: Rate and Rhythm: Normal rate and regular rhythm. Heart sounds: Normal heart sounds. No murmur heard. Pulmonary: Effort: Pulmonary effort is normal. Breath sounds: Normal breath sounds. Abdominal: General: Bowel sounds are normal. Palpations: Abdomen is soft. Tenderness: There is no abdominal tenderness. Musculoskeletal: General: Normal range of motion. Cervical back: Neck supple. Lymphadenopathy: Cervical: No cervical adenopathy. Skin: General: Skin is warm and dry. Comments: 1.5 x 2.5 cm basal cell ca at base of neck on back Neurological: General: No focal deficit present. Mental Status: He is alert and oriented to person, place, and time. Psychiatric: Mood and Affect: Mood normal. An electronic signature was used to authenticate this note. Monique Young MD 07/04/2022 8:55 AM documented in this encounter [facility] Welcome to Medicare preventive visit- Primary Essential hypertension Unspecified essential hypertension Coronary artery disease involving [place] coronary artery of [place] heart without angina pectoris Peripheral vascular obstructive disease (HCC) Unspecified peripheral vascular disease History of below-knee amputation of right lower extremity (HCC) Hyperlipidemia LDL goal <100 Other and unspecified hyperlipidemia Elevated fasting glucose Impaired fasting glucose Unilateral inguinal hernia without obstruction or gangrene, recurrence not specified [facility] Consultation (Routine) - Pending Review Specialty Diagnoses / Procedures Referred By Contac t Referred To Contact Plastic Surgery Diagnoses Basal cell carcinoma of skin of trunk, except scrotum Procedures [place] OFFICE/OUTPATIENT [facility] 60-74 MINUTES Monique Young MD [address] [facility], [place] [address] Dom Padilla [address] [id number] Referral ID Status Reason Start Date Expiration Date Visits Requested Visits Authorized [id number] Pending Review Specialty Services Required 07/04/2022 07/04/2023 1 1 [facility] Consultation (Routine) - Pending Review Specialty Diagnoses / Procedures Referred By Ramana cordova Referred To Contact General Surgery Diagnoses Peripheral vascular obstructive disease (HCC) Unilateral inguinal hernia without obstruction or gangrene, recurrence not specified Procedures [place] OFFICE/OUTPATIENT [facility] 60-74 MINUTES Beverly Griffin APRN - CNP [address] [place] [address] William Foley [address] [place] [address] Referral ID Status Reason Start Date Expiration Date Visits Requested Visits Authorized [id number] Pending Review Specialty Services Required 3 01/21/2024 1 1 [facility] Summary Purpose Family History No Family History Records Found Advance Directives No Advanced Directives Records Found Additional Source Comments Reason for Visit (unrecogniz ed section and content) Reason Comments Medicare Annual Wellness Visit Initial Health Maintenance Colon-refusedSkin ch corey-scheduled in 3 [id number]-refused Reason Onset Date Comments vascular testing notes/missing pages with referr al 01/22/2023 Care Teams (unrecognized sec tion and content) Engagement Mgr Relationship Specialty Start Date End Date Monique Young MD [address] [place] [id number] PCP - General Family Medicine 06/12/22 Engagement Mgr Relationship Specialty Start Date End Date Monique Young MD [address] [place] [phone] PCP - General Family Medicine 06/12/22 (unrecognized sect ion and content) No Status Records Found INFORMATION SOURCE (unrecogn ized section and content) FOR RECORDS PERTAINING TO PATIENTS WHO ARE OR HAVE BEEN ENROLLED IN A CHEMICAL DEPENDENCY/SUBSTANCEABUSE PROGRAM, SOME INFORMATION MAY BE OMITTED. This clinical summary was aggregated from multiple sources. Caution should be exercised in using it in the provision of clinical care. This summary normalizes information from multiple sources, and as a consequence, information in this document may materially change the coding, format and clinical context of patient data. In addition, data may be omitted in some cases. CLINICAL DECISIONS SHOULD BE BASED ON THE PRIMARY CLINICAL RECORDS. [facility] provides no warranty or guarantee of the accuracy or completeness of information in this document.
[2023-05-22] MEDS: Lactated Ringers 1,000 ML 15 ML IV ×2 (10:07→14:05)
--- NOTE | 2023-05-22 11:39 | PCM.HP.STD ---
HPI - General General Date of Service: 05/22/23 Chief Complaint: Left renal mass HPI Narrative PATRIA FREGOSO, is a 68 M who presents for a laparoscopic robotic assisted left partial nephrectomy [facility] Medical History Abnormal computed tomography angiography (CTA) of abdomen Arthritis Back pain Basal cell carcinoma (BCC) Basal cell carcinoma of skin of neck Basosquamous carcinoma of skin Broken ribs Cancer Cardiology follow-up encounter Encounter for observation for suspected malignant neoplasm Family history of skin cancer Former smoker History of alcohol abuse History of blood clots Hypertension Neoplasm of skin of neck 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 Wears glasses Wears partial dentures Home Medications aspirin 81 mg chewable tablet 81 mg PO DAILY@0800 01/21/13 [History Last Taken 05/16/23] cholecalciferol (vitamin D3) 50 mcg (2,000 unit) capsule 50 mcg PO DAILY 04/24/23 [History Last Taken 05/20/23] rivaroxaban 2.5 mg tablet (Xarelto) 2.5 mg PO BID #60 tabs 04/24/23 [Rx Last Taken 05/18/23] multivitamin (Daily Multi-Vitamin tablet) 1 tab PO .3-4 TIMES WEEKLY 05/07/23 [History Last Taken 05/20/23] Allergy/AdvReac Type Severity Reaction Status Date / Time No Known Allergies Allergy Verified 05/22/23 10:01 Family History Brother Heart disease Family history of skin cancer Surgical History (Updated 05/07/23 @ 10:34 by Valarie De Leon) History of excision of lesion History of incision and drainage History of left heart catheterization History of squamous cell carcinoma excision Hx of foot surgery Hx of hernia repair (~03/2023) Hx of peripheral artery bypass Unilateral complete BKA Social History Smoking Status: Former smoker alcohol intake: former details: 12 Years substance use type: does not use what type of physical activity do you participate in: bicycling Vital Signs Vital Signs Vital Signs: 05/22/23 10:03 05/22/23 10:03 Temperature 98.6 F Temperature Source Temporal Pulse Rate 94 Respiratory Rate 16 Respiratory Pattern Normal Blood Pressure 122/93 H Blood Pressure Mean 102 Blood Pressure Source Monitor Blood Pressure Position Semi-Fowlers Blood Pressure Location Left Arm Pulse Ox 99 Oxygen Delivery Method Room Air Weight Weight: 87 kg Body Mass Index (BMI) 26.7
--- NOTE | 2023-05-22 11:40 | MASS_PTH ---
PATHOLOGY RESULTS PATIENT: PATRIA FREGOSO [place]: [facility] [place] U[place][id number] AGE/SX: 68/M ROOM: RE05/22/[address]: Dr. Marco Ovalle MD : 1955 BED: DIS: 05/23/2023 SPEC #: [id number] RECD: 05/22/23 18:34 STATUS: BEBA LABOY #: [id number] BETHEL: 05/22/23 11:[address]: Marco Ovalle DEPT: SURGICAL PATHOLOGY RECD BY: Katelin Plaza ENTERED: 05/23/23 08:24 SP TYPE: Mass OTHR DR: Dr. Aram Mccurdy MD Tissues: Kidney, NOS Procedures: Surgery Specimen Level V HEADER OPERATION: Lap robotic partial nephrectomy PRE-OP DIAGNOSIS: Left renal mass TISSUE SUBMITTED: Left renal mass MICROSCOPIC DIAGNOSIS Left renal mass, partial nephrectomy: Clear cell renal cell carcinoma. See cancer summary in the comment section. SJ:kevin 05/27/2023 COMMENT KIDNEY CANCER SUMMARY Procedure - partial nephrectomy Specimen laterality - left Tumor site - not specified Tumor size - 3.5 x 2.0 x 1.5 cm Tumor focality - unifocal Histologic type - clear cell renal cell carcinoma Sarcomatoid features - not identified Rhabadoid features - not identified Histologic grade - grade 2 (WHO/ISUP) Tumor necrosis - not identified Tumor extension - tumor limited to kidney Margins - margins uninvolved by invasive carcinoma. Lymphvascular invasion - not identified Regional lymph nodes - no lymph nodes submitted or found. Non-neoplastic kidney - no adjacent non-neoplastic renal tissue is noted. Additional pathologic findings - tumor also shows focal calcifications. PATHOLOGIC STAGE: pT1a pNx pMx The above summary is in compliance with [employer] (CAP) Cancer Protocols Checklist and [place] Joint Committee on Cancer (AJCC), Staging Manual, 8th Ed. Case has been reviewed in consultation with Dr. Russo who concurs with the above diagnosis. IDC:AM MICROSCOPIC DESCRIPTION Slides are reviewed. GROSS DESCRIPTION Received in fixative is one container labeled with the patient's name and designated left renal mass. The specimen consists of partial nephrectomy specimen weighing 4.6 grams and measuring 3.5 x 2.0 x 1.5 cm. The presumed resection margin is inked black, rest of the surface is inked blue. Sections reveal almost entire specimen is replaced by the tumor mass which shows yellowish focally calcified cut surfaces. Areas of hemorrhage or necrosis are not seen. The entire specimen is submitted from one end to the other end in 4 cassettes. LAMBERT/ally 05/23/23 TC:0 CPT: 25830
[2023-05-22] MEDS: Cefazolin 2 GM in 0.9% Normal Saline (100mL Bag) 100 ML IV (12:40)
--- NOTE | 2023-05-22 14:32 | DCINST_ITS ---
Discharge Instructions Diet Discharge Diet: No restrictions Activity Discharge Activity: Return to Normal Activity and May Not Drive (while taking narcotic pain medications.) Dressing / Incision Call your doctor if you observe: Fever of 101 or Higher Follow Up Care Please Follow Up With: Marco Ovalle MD When: Call [phone] for an appointment Test Results: Test results from this visit will be discussed in further detail at your follow- up appointment, if applicable. Discharge Plan Admission Primary Reason for Your Visit: Left partial nephrectomy Attending Provider: Marco Ovalle Primary Care Provider: Aram Mccurdy Discharge Orders/Prescriptions Prescriptions: New docusate sodium [Colace] 100 mg capsule 100 mg PO BID Qty: 20 0RF oxycodone 5 mg tablet 5 mg PO Q6H PRN (Reason: pain) 7 Days Qty: 10 0RF Continued multivitamin [Daily Multi-Vitamin] Tablet 1 tab PO .3-4 TIMES WEEKLY Held cholecalciferol (vitamin D3) 50 mcg (2,000 unit) capsule 50 mcg PO DAILY Hold Instructions: Resume on 05/29/23. Xarelto 2.5 mg tablet 2.5 mg PO BID Qty: 60 2RF Hold Instructions: Resume on 06/01/23. aspirin 81 MG tablet,chewable 81 mg PO DAILY@0800 Hold Instructions: Resume on 05/29/23. Referrals / Follow Up: Aram Mccurdy MD [Primary Care Provider] - Marco Ovalle MD [Med Staff - Active Staff] - Disposition Disposition (needs filled in before D/C Order can be placed): Home, Self Care
--- NOTE | 2023-05-22 14:32 | PCM.OPRPT ---
Report of Operation Date of Procedure: 05/22/23 Pre-Operative Diagnosis: Left renal mass Post-Operative Diagnosis: The same Surgery/Procedure Performed:: Laparoscopic robotic assisted left partial nephrectomy Description of Surgical Findings:: Patient was taken back to the operating room with a smooth duction of general anesthesia he was placed supine on the table underwent intubation and Montero catheter was placed he was then placed full laterally on the side left side up for approach to the left kidney the abdomen was shaved prepped and draped in usual sterile fashion placed Veress needle to Verrett peritoneal cavity filled the peritoneal cavity CO2 gas and then placed camera trocar right arm trocar left trocar and then an air seal port through the umbilicus. First thing I did was incised the white line of Toldt and reflected colon off the kidney I then reflected the spleen off the kidney I then dissected the fat off the kidney and worked my way towards the hilum identified the renal vein I plan to do an off clamp resection as I did not dissect the rest of the hilum I then went superior to the hilum and a new the tumor was superior anterior in the kidney as I worked my way anteriorly cleaned off the fat off the kidney the tumor was then identified I then used intraoperative ultrasound to identify the tumor itself identify the edges of the tumor. I then I switched over to scissors and bipolar [place] retractor and completed an off clamp resection of the tumor following the pseudocapsule the tumor was able to get started on the pseudocapsule worked my way inferiorly and then the tumor actually rolled out off the parenchyma there was minimal bleeding since I did very minimal penetration into the parenchyma the tumor then placed in Endo Catch bag I then placed Floseal and Surgicel in the defect and then closed the defect with a stitch using an 0 Vicryl stitch with a sliding right free technique with clips and Heema lock stitch after this was accomplished the there was no bleeding from the tumor resection site we lowered the pressure to 5 and watch the resection site for 5 minutes we but the fat back over the resection site for protection and then undocked the robot the tumor was extracted through the umbilicus we closed the umbilicus with a Dylan Guzman stitch using 0 Vicryl patient acetic is currently being reversed all sponges and needles were accounted for and it was a successful complete resection of the tumor in the left kidney off clamp fashion estimated blood loss was about 75 cc was probably better blood loss. Patient is currently being reversed from his anesthetic Surgeon: Marco Ovalle Type of Anesthesia: General Drains: montero Admit VTE Documentation VTE Present on Admission: No VTE Mechan Device Prophylaxis: SCD's VTE Pharm Prophylaxis ordered?: No
[2023-05-22] MEDS: Bupivacaine Mpf 0.5% 30 ML VIAL (14:37)
[2023-05-22] MEDS: Ketorolac 15 MG/ML Vial IV (15:38)
[2023-05-22] MEDS: 0.9% Normal Saline (1000mL) 1,000 ML 100 ML IV (18:50)
[2023-05-22] MEDS: Acetaminophen 325 MG Tablet PO (18:55)
[2023-05-22] MEDS: oxyCODONE 5 MG Tablet PO (20:31)
[2023-05-22] MEDS: Docusate Sodium 100 MG Capsule 200 MG PO (22:40)
[2023-05-23] VITALS: BP 135/74; PULSE 84; RESP 16; TEMP 36.9; O2SAT 96
[2023-05-23 05:00] VITALS: BP 134/75; PULSE 82; RESP 16; TEMP 36.8; O2SAT 96
[2023-05-23] MEDS: 0.9% Normal Saline (1000mL) 1,000 ML 100 ML IV (05:50)
[2023-05-23] MEDS: Ketorolac 15 MG/ML Vial IV (06:42)
[2023-05-23 07:10] VITALS: O2SAT 95
[2023-05-23 07:20] VITALS: BP 129/92; PULSE 82; RESP 14; TEMP 36.4; O2SAT 97
--- NOTE | 2023-05-23 07:21 | PCM.PN.GU ---
Subjective Subjective 68-year-old male status post left partial nephrectomy doing well, will DC Kiran, Hep-Lock IV fluids, and discharge home today. Objective Data Objective Data Vital Signs: Vital Signs Temp Pulse Resp BP Pulse Ox O2 Del Method O2 Flow Rate 98.3 F 82 16 134/75 H 96 Room Air 2 05/23/23 05:00 05/23/23 05:00 05/23/23 05:00 05/23/23 05:00 05/23/23 05:00 05/23/23 05:00 05/22/23 18:49 Oxygen Flow Rate (L/min) 2 Oxygen Delivery Method Room Air Weight: 87 kg Body Mass Index (BMI) 26.7 Intake & Output: Intake and Output for Last 24 Hours 05/21/23 05/22/23 05/23/23 23:59 23:59 23:59 Intake Total 1212.5 / 2112.5 3700 / 3700 Output Total 215 / 465 650 / 650 Balance 997.5 / 1647.5 3050 / 3050
[2023-05-23 07:30] VITALS: BP 145/78; PULSE 85; RESP 14; TEMP 36.6; O2SAT 97
[2023-05-23] MEDS: Docusate Sodium 100 MG Capsule 200 MG PO (07:51)
--- NOTE | 2023-05-23 09:14 | CASEMGMT ---
Pt states that he feels safe and comfortable DC home today via his . Pt denies any further needs at this time.
--- NOTE | 2023-05-23 11:02 | PHA.DC.MC.R ---
Pharmacy [facility] has performed discharge medication reconciliation and counseling for this patient. The patient's discharge medication list was reviewed for discrepancies and discrepancies were resolved. The patient was counseled on the following discharge medications and changes in medications for homegoing were reviewed. 1. OXYCODONE 2. DOCUSATE The Reason for Use, instructions for use, and potential side effects were reviewed for all new medications. The patient's questions regarding all of their medications were answered. The patient was able to verbally demonstrate an understanding of their discharge medications. Patient was discharge counselled by Alvino Spencer PharmD Candidate Medications at Discharge Home Medications aspirin 81 mg chewable tablet 81 mg PO DAILY@0800 01/21/13 cholecalciferol (vitamin D3) 50 mcg (2,000 unit) capsule 50 mcg PO DAILY 04/24/23 rivaroxaban 2.5 mg tablet (Xarelto) 2.5 mg PO BID #60 tabs 04/24/23 multivitamin (Daily Multi-Vitamin tablet) 1 tab PO .3-4 TIMES WEEKLY 05/07/23 docusate sodium 100 mg capsule (Colace) 100 mg PO BID #20 caps 05/22/23 oxycodone 5 mg tablet 5 mg PO Q6H PRN pain 7 days #10 tabs 05/22/23
[2023-05-23] MEDS: Acetaminophen 325 MG Tablet PO (12:03)
[2023-05-23] MEDS: oxyCODONE 5 MG Tablet PO (12:03)
== END 2023-05-23 15:49 | disposition home or self-care (01) ==
LOC: SDC 09:32 → AC 09:35 → MS3 06-04 08:47
PROVIDERS: PCP Family Medicine; Referring Provider Urology; Visit Provider Urology
PROC: (CPT 50543; principal; 2023-05-22 11:20)
DX: C64.2 Malignant neoplasm of left kidney, except renal pelvis (principal); N28.89 Other specified disorders of kidney and ureter; Z79.82 Long term (current) use of aspirin; Z79.01 Long term (current) use of anticoagulants; Z87.891 Personal history of nicotine dependence
CPT/HCPCS: 50543; S2900; 00862; 88305; 88307; J7030; J7120; J2405

== ENCOUNTER 2023-10-22 08:16 | Outpatient (CLI) | payer MEDICARE, OTHER, SELFPAY ==
--- NOTE | 2023-10-22 08:18 | CT_ITS ---
STUDY: CT ABDOMEN WITH CONTRAST REASON FOR EXAM: Male, 68 years old. Malignant neoplasm of left kidney RADIATION DOSAGE (If Supplied By Facility): CTDIvol = ( 12.96 ) mGy, DLP = ( 462.85 ) mGycm TECHNIQUE: Transaxial images were obtained post I.V. administration of IV 100mL Isovue-370, and oral contrast. Sagittal and coronal images were reconstructed. Individualized dose optimization techniques were used for this CT. COMPARISON: Renal ultrasound 04/02/2023, CT 03/18/2023 FINDINGS: The visualized lung bases are unremarkable. The visualized portions of the heart are within normal limits. Normal liver. Normal gallbladder and extrahepatic biliary system. Normal spleen. Normal pancreas. Normal bilateral adrenal glands. Normal right kidney. Normal left kidney. Fluid or scar in the medial aspect of the upper pole the left kidney at the site of prior mass consistent with partial nephrectomy. No residual or recurrent mass. No tumor thrombus in the left renal vein or inferior vena cava. No surrounding lymphadenopathy. Normal visualized stomach. Normal small intestine. Normal colon. The appendix is visualized and appears normal. There is diffuse atherosclerotic calcification of the abdominal aorta, without a demonstrated aneurysm. Normal inferior vena cava. Normal retroperitoneum. Normal abdominal wall. Mild dextroscoliosis lumbar spine with degenerative disc disease. Multiple healed left rib fractures. Healed fracture of the left ilium. CT/Abdomen WITH IV Contrast IMPRESSION: Status post left partial nephrectomy without evidence of residual, recurrent, or metastatic renal cell carcinoma. Electronically Signed: Yash Babin MD at 9:15 EDT ,
== END 2023-10-22 23:59 | disposition home or self-care (01) ==
LOC: CT 08:17
PROVIDERS: PCP Family Medicine; Referring Provider Urology; Visit Provider Urology
DX: C64.2 Malignant neoplasm of left kidney, except renal pelvis (principal)
CPT/HCPCS: 74160; Q9967

== ENCOUNTER → 2024-01-14 | Outpatient (CLI) | payer MEDICARE, OTHER, SELFPAY ==
--- NOTE | 2024-01-14 13:40 | ART_ITS ---
Reason For Study: Claudication Procedure A bilateral lower extremity continuous wave Doppler with analog waveform analysis,segmental pressures,and ankle brachial indexes without exercise. Left Segmental Pressures Left brachial= 94mmHg. Left thigh = 138mmHg. Left calf = 86mmHg. Left posterior tibial artery = 81mmHg. Left dorsalis pedis artery = 67mmHg. The left posterior tibial artery waveforms are monophasic. The left dorsalis pedis waveforms are monophasic. Right Segmental Pressures Right brachial= 148mmHg. Right thigh = 92mmHg. The right thigh waveforms are biphasic. Indices The right ankle brachial index by the posterior tibial artery is 0.55. The right ankle brachial index by the dorsalis pedis is 0.45. VL/Lower Ext Art Exam w/o Exercis Interpretation Summary Prior right below the knee amputation. Thigh waveforms moderately diminished. Left CHRISTIANNE 0.55, moderate arterial insufficiency. Doppler/PVR waveforms and segme ntal pressures reveal [id number] femoral, distal SFA/popliteal disease. Ordering Physician: Shon Lanier Referring Physician: Aram Mccurdy Performed By: Audi Mitchell, RVT
== END | disposition home or self-care (01) ==
LOC: CVS 13:40
PROVIDERS: PCP Family Medicine; Referring Provider Surgery Trauma Surgery; Visit Provider Surgery Trauma Surgery
DX: I73.9 Peripheral vascular disease, unspecified (principal)
CPT/HCPCS: 93923

== ENCOUNTER → 2024-03-27 | Outpatient (CLI) | payer MEDICARE, OTHER, SELFPAY ==
--- NOTE | 2024-03-27 | CYST_PTH ---
PATIENT: PATRIA FREGOSO LOC: [facility]#:[id number] AGE/SX: 68/M ROOM: RE03/27/[address]: Dr. William Lynn MD : 1955 BED: DIS: 03/27/2024 SPEC #: [id number] RECD: 03/27/24 14:03 STATUS: BEBA LABOY #: [id number] BETHEL: 03/27/24 00:[address]: William Lynn DEPT: SURGICAL PATHOLOGY RECD BY: Martin Groves ENTERED: 03/30/24 10:16 SP TYPE: Cyst OTHR DR: Dr. Aram Mccurdy MD Tissues: A - CYST B - CYST C - CYST Procedures: Surgery Specimen Level III HEADER OPERATION: Excision back cysts PRE-OP DIAGNOSIS: Back cysts TISSUE SUBMITTED: A. Right back cyst, B. Mid central back cyst, C. Left mid back cyst MICROSCOPIC DIAGNOSIS A. Right back cyst, excision: Epidermal inclusion cyst. B. Mid central back cyst, excision: Epidermal inclusion cyst. C. Left mid back cyst, excision: Epidermal inclusion cyst. 03/31/2024 MICROSCOPIC DESCRIPTION Slides are reviewed. GROSS DESCRIPTION A. Received is one container labeled with the patient name and designated right back cyst. The specimen consists of skin with underlying tissue. The skin piece measures 3 x 0.5 cm, underlying tissue measures 3 x 2.5 x 1.0 cm. The specimen is serially section and reveal a cyst measuring 1.2 x 1.5 x 1.0 cm filled with cheesy material. Pantograph Ii Engraver sections are submitted in one cassette. B. Received is one container labeled with the patient name and designated mid central back cyst. The specimen consists of ardon-white skin that measures 1.5 x 0.5 x 1.0 cm. The specimen is serially sectioned and totally submitted in one cassette. C. Received is one container labeled with the patient name and designated right back cyst. The specimen consists of skin with underlying tissue. The skin piece measures 2.5 x 1.0 cm, underlying tissue measures 3 x 2.5 x 1.5 cm. The specimen is serially sectioned and reveal a cyst filled with cheesy material and measuring 2 x 1.5 x 1.0 cm. Pantograph Ii Engraver sections are submitted in one cassette. /LAMBERT:solitario 03/30/24 TC:5 CPT:96282x 3
== END | disposition home or self-care (01) ==
LOC: LABSPEC 14:09
PROVIDERS: PCP Family Medicine; Referring Provider Surgery Plastic and Reconstructive Surgery; Visit Provider Surgery Plastic and Reconstructive Surgery
DX: L72.0 Epidermal cyst (principal)
CPT/HCPCS: 88304

== ENCOUNTER → 2024-04-06 | Outpatient (CLI) | payer MEDICARE, OTHER, SELFPAY ==
--- NOTE | 2024-04-06 07:51 | CT_ITS ---
STUDY: CT ABDOMEN WITH CONTRAST REASON FOR EXAM: Male, 68 years old. Malignant neoplasm of left kidney, except renal pelvis RADIATION DOSAGE (If Supplied By Facility): CTDIvol = ( 15.73 ) mGy, DLP = ( 685.13 ) mGycm TECHNIQUE: Transaxial images were obtained post I.V. administration of IV 100mL Isovue-300, and oral contrast. Sagittal and coronal images were reconstructed. Individualized dose optimization techniques were used for this CT. COMPARISON: 10/22/2023 FINDINGS: The visualized lung bases are unremarkable. The visualized portions of the heart are within normal limits. Normal liver. Normal gallbladder and extrahepatic biliary system. Normal spleen. Normal pancreas. Normal bilateral adrenal glands. Normal right kidney. Postsurgical changes to the upper pole the left kidney without evidence of residual or recurrent mass. No tumor thrombus within left renal vein or inferior vena cava. Normal visualized stomach. Normal small intestine. Normal colon. The appendix is visualized and appears normal. There is diffuse atherosclerotic calcification of the abdominal aorta, without a demonstrated aneurysm. Normal inferior vena cava. Normal retroperitoneum. Normal abdominal wall. Mild dextro scoliosis lumbar spine with degenerative disc disease. CT/Abdomen WITH IV Contrast IMPRESSION: Status post left partial nephrectomy without evidence of residual, recurrent, or metastatic renal cell carcinoma. Electronically Signed: Yash Babin MD at 18:19 EST ,
[2024-04-06 08:25] LABS: CREATININE FINGERSTICK < 1.0 mg/dL (0.70-1.30); EGFR FINGERSTICK > 60.0000 mL/min (>60)
== END | disposition home or self-care (01) ==
LOC: CT 07:50
PROVIDERS: PCP Family Medicine; Referring Provider Urology; Visit Provider Urology
DX: C64.2 Malignant neoplasm of left kidney, except renal pelvis (principal)
CPT/HCPCS: 74160; Q9967